=== PATIENT | female | born 1965 | race Hispanic/Latino ===

== ENCOUNTER 2019-06-05 14:07 | Emergency (ER) | payer MEDICARE ==
[~2019-06-05] VITALS: Ht 152.4 cm; Wt 99.8 kg
--- OUTSIDE RECORDS SUMMARY | 2019-06-05 14:09 | XMS REPORT ---
[facility] Unknown Phone Unavailable Care Team Providers Care Rose Grower Name Role Phone JOCELYNE HOPSON VALERIE Unavailable TERELL ALCIDES Unavailable Unavailable Problems This patient has no known problems. Allergies, Adverse Reactions, Alerts This patient has no known allergies or adverse reactions. Medications This patient has no known medications. Encounters Start Date/Time End Date/Time Encounter Type Admission Type Attending [facility] Facility Care Department Encounter ID 2017-06-30 16:11:[address] [facility] [id number] 2017-04-15 09:38:[address] [facility] [id number] 2017-03-13 17:29:[address] [facility] [id number] 2017-08-01 20:33:00 2017-08-01 20:33:[address] [facility] [id number] 2017-07-18 14:38:00 2017-07-18 14:38:00 Outpatient [facility] [id number] 2017-05-02 09:30:00 2017-05-02 09:30:00 Outpatient C [facility] [id number] 2017-03-18 12:28:00 2017-03-18 12:28:[address] [facility] [id number] 2016-12-30 10:06:00 2016-12-30 10:06:[address] [facility] [id number] 2016-12-25 00:49:00 2016-12-25 00:49:00 Emergency E [facility] [id number] Results Test Description Test Time Test Comments Text Results Atomic Results Result Comments XR SPINE LUMBAR 2-3V 2017-08-01 22:02:35 LOCATION: [id number]: 52-year-old female with low back pain.COMMENT: After-hours service at 10:02 p.m.Frontal, lateral, and L5-S1 spot lateral radiographs of the lumbar spinewere obtained.The skeleton is intact and the alignment is adequate. Mild degenerativedisease seen throughout the lumbar spine. The posterior facets atelements are unremarkable. 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 US TRANSVAGINAL 2017-07-18 16:05:38 EXAM: PELVIC ULTRASOUNDINDICATION: Lower abdominal painCOMPARISON: None available TECHNIQUE: Coe scale and color Doppler imaging of the pelvis wasperformed via transabdominal and endovaginal approaches. FINDINGS: The uterus is normal in echotexture measuring 8.3 x 3.2 x 4.3 cm. Nofocal fibroid. The endometrial stripe is homogenous measuring 0.4 cm inthickness. Multiple nabothian cysts are noted. There is a hypoechoiclesion within the lower uterine segment measuring 0.6 x 0.8 cm which isnonspecific and unchanged from 2010.Right ovary measures 1.9 x 1.0 x 1.8 cm and the left ovary measures 1.8x 1.1 x 1.4 cm. Arterial and venous flow is confirmed within bothovaries using spectral waveform analysis. No adnexal mass. No pelvicfree- fluid. IMPRESSION: No acute abnormality of the uterus or ovaries..LOCATION: R 16 US PELVIC COMPLETE 2017-07-18 16:05:38 EXAM: PELVIC ULTRASOUNDINDICATION: Lower abdominal painCOMPARISON: None available TECHNIQUE: Coe scale and color Doppler imaging of the pelvis wasperformed via transabdominal and endovaginal approaches. FINDINGS: The uterus is normal in echotexture measuring 8.3 x 3.2 x 4.3 cm. Nofocal fibroid. The endometrial stripe is homogenous measuring 0.4 cm inthickness. Multiple nabothian cysts are noted. There is a hypoechoiclesion within the lower uterine segment measuring 0.6 x 0.8 cm which isnonspecific and unchanged from 2010.Right ovary measures 1.9 x 1.0 x 1.8 cm and the left ovary measures 1.8x 1.1 x 1.4 cm. Arterial and venous flow is confirmed within bothovaries using spectral waveform analysis. No adnexal mass. No pelvicfree- fluid. IMPRESSION: No acute abnormality of the uterus or ovaries..LOCATION: R 16 CT PELVIS LTD W/O CONTRAST 2017-05-02 10:30:21 CT PELVIS LTD W/O CONTRASTLOCATION: [id number]: R10.32: LEFT LOWER QUADRANT PAIN COMPARISON: Pelvic ultrasound 03/21/2011TECHNIQUE: Axial images of the pelvis were obtained without intravenouscontrast. One or more of the following dose reduction techniques were used:Automated exposure control, adjustment of the mA and/or kV according topatient size, and/or utilization of iterative reconstruction technique.DISCUSSION:Hepatobiliary: The inferior right hepatic tip is grossly unremarkable. Kidneys/ureters: The visualized lower poles of both kidneys and uretersare grossly unremarkable.Pelvic organs/bladder: An approximately 5.3 x 5.9 x 4.2 cm focal areaof peritoneal fat stranding is seen along the left adnexum. The adnexa,uterus, and bladder are otherwise grossly unremarkable.Vessels: Unremarkable.Lymph nodes: No lymphadenopathy.Peritoneum/retroperitoneum: No intraabdominal free air or free fluid.Bowel: No definite abnormal bowel wall thickening or evidence ofobstruction. The appendix does not appear inflamed. A moderate amount ofcolonic stool is present.Bones/soft tissues: There are mild degenerative changes in the bilateralsacroiliac, bilateral hip, and pubic symphysis joints. There are alsomild degenerative changes in the lower lumbar spine. No definite acuteosseous abnormalities are seen.A fat-containing ventral, periumbilical hernia measures approximately6.5 x 3.4 x 6.5 cm. There is nonspecific mild fat stranding within thehernia. Small calcifications within the hernia may be related to remotefat necrosis. A few scattered small subcutaneous calcifications are seenposterior to the pelvis.IMPRESSION:1. Nonspecific 5.9 cm focal area of peritoneal fat stranding along theleft adnexum could be due to focal peritoneal fat infarction or matureovarian cystic teratoma. Follow-up pelvic CT in 3 months is recommended.2. Otherwise, no acute abnormalities in the pelvis.3. Approximately 6.5 cm fat-containing ventral, periumbilical herniawith nonspecific mild fat stranding within the hernia sac. XR RIBS WO CHEST 2V, UNI-LEFT 2017-03-18 14:07:38 XR RIBS WO CHEST 2V, UNI- LEFTLOCATION: R16 INDICATION: Rib Pain - Left COMPARISON: NoneTechnique: 3 views of the left ribs.FINDINGS:No fracture is identified. There is no focal osseous lesion. Thevisualized left lung is unremarkable.IMPRESSION: No left rib fracture. Comprehensive Metabolic Panel 2016-12-25 02:39:00 Sodium (test code=NA) 132 mmol/L 135-145 Potassium (test code=K) 3.7 mmol/L 3.5-5.1 Chloride (test code=CL) 96 mmol/L 98-105 Carbon Dioxide (test code=CO2) 25 mmol/L 22-29 Glucose (test code=GLU) 349 mg/dL 70-115 Blood Urea Nitrogen (test code=BUN) 12 mg/dL 6-20 Creatinine (test code=CREAT) 0.5 mg/dL 0.5-0.9 Calcium (test code=CA) 9.2 mg/dL 8.3-10.5 Prot Total (test code=TP) 6.3 g/dL 6.4-8.3 Albumin (test code=ALB) 3.9 g/dL 3.5-5.2 A/G Ratio (test code=AGRATIO) 1.6 Ratio Globulin (test code=GLOB) 2.4 2.9-3.1 Bili Total (test code=TBIL) 0.2 mg/dL 0.1-0.9 Alk Phos (test code=APHOS) 117 U/L 35-104 AST (test code=AST) 11 U/L 1-32 ALT (test code=ALT) 13 U/L 1-33 BUN/Creatinine Ratio (test code=BCRATIO) 24.0 Anion Gap (test code=AGAP) 11 mmol/L 7-16 Estimated GFR (test code=GFR) >60 mL/min/1.73m2 eGFR (estimated Glomerular Filtration Rate) is an estimated value,calculated from the patient's serum creatinine using the MDRD equation.It is NOT the patient's actual GFR. The eGFR provides a more clinicallyuseful measure of kidney disease than serum creatinine alone.This calculation takes sex and race into account, if the informationis provided. If the race is not provided, and the patient isAfrican-Chilean, multiply by 1.212. If sex is not provided, and thepatient is female, multiply by 0.742. Results for patients <18 years ofage have not been validated by the MDRD study and should be interpretedwith caution.eGFR Result Interpretation:eGFR > or=60 is in the Normal RangeeGFR < 60 may mean kidney diseaseeGFR < 15 may mean kidney failureRanges recommended by the National Kidney Foundat ion,http://nkdep.nih.gov [id number] 02:32:00* Test Item Value Reference Range Comments Amphetamine (test code=AMPH) Negative Negative For diagnostic purposes only, positive results should always be assessedin conjunctionwith the patient's medical history,clinical examination and otherfindings.To fulfill legal requirements, a more specific alternate chemical methodmust be used inorder to obtain a Confirmed analytical result. GC/MS is the preferred confirmatory method. Barbiturates (test code=SIDDHARTH) Negative Negative Benzodiazepine (test code=LAMBERTO) Negative Negative Cocaine (test code=COCA) Negative Negative Methadone (test code=MTHD) Negative Negative Opiates (test code=OPIA) Negative Negative PCP (test code=PCP) Negative Negative Propoxyphene (test code=PROPOX) Negative Negative THC (test code=THC) Negative Negative Alcohol, Urine (test code=ETOHU) <0.01 g/dL 0.00-0.01 Urinalysis [id number] 02:23:00* Test Item Value Reference Range Comments Color (test code=COLOR) Straw Yellow,Straw,Pl yellow Clarity (test code=CLAR) Clear Clear Specific [place] (test code=SPGR) 1.017 1.001-1.035 pH (test code=PH) 5.0 5.0-9.0 Ketone (test code=KET) Negative mg/dL Negative Glucose (test code=GLUCUR) 1000 mg/dL Negative Protein (test code=PROT) Negative mg/dL Negative Bilirubin (test code=BILI) Negative mg/dL Negative Occult Blood (test code=UDOB) Negative Negative Urobilinogen (test code=UROB) 0.2 mg/dL 0.2-1.0 Nitrite (test code=NIT) Negative Negative Leuk Esterase (test code=LEUK) Negative Negative Micros Exam (test code=MEXAM) Indicated Epithelial Cells (test code=EPI) 3-5 /LPF 0-30 WBC, Urine (test code=UWBC) 0-1 /HPF 0-5 RBC, Urine (test code=URBC) None Seen /HPF 0-5 Bacteria (test code=BACT) Few /HPF CBC with [id number] 02:14:00* Test Item Value Reference Range Comments WBC (test code=WBC) 10.7 K/cumm 4.4-10.5 RBC (test code=RBC) 4.27 M/cumm 3.75-5.20 Hemoglobin (test code=HGB) 12.3 gm/dL 12.2-14.8 Hematocrit (test code=HCT) 37.8 % 36.5-44.4 MCV (test code=MCV) 88.4 fL 80-100 MCH (test code=MCH) 28.7 pg 27.0-32.5 MCHC (test code=MCHC) 32.4 g/dL 32.0-37.5 RDW (test code=RDW) 14.1 % 11.5-14.5 Platelet Count (test code=PLTCT) 357 K/cumm 140-440 MPV (test code=MPV) 7.7 fL Diff Method (test code=DIFFM) Auto Neutrophil (test code=NEUT) 59.0 % 36-70 Lymphocyte (test code=LYMPH) 29.4 % 12-44 Monocyte (test code=MONO) 7.3 % 0-11 Eosinophil (test code=EOS) 3.7 % 0-7 Basophil (test code=BASO) 0.6 % 0-2 Neutro Abs (test code=ANEUT) 6.3 K/cumm 1.6-7.4 Lymph Abs (test code=ALYMPH) 3.2 K/cumm 0.5-4.6 [place] Abs (test code=AMONO) 0.8 K/cumm 0.0-1.2 Eos Abs (test code=AEOS) 0.40 K/cumm 0.00-0.74 Baso Abs (test code=ABASO) 0.1 K/cumm 0.00-0.21
[2019-06-05] MEDS: KETOROLAC TROMETHAMINE 60 MG/2 ML VIAL IM ONE (15:00)
[2019-06-05] MEDS ORDERED: KETOROLAC TROMETHAMINE 60 MG/2 ML VIAL ONE (15:09)
== END 2019-06-05 15:24 | disposition home or self-care (01) ==
LOC: FSED 14:07
DX: M25.511 Pain in right shoulder (principal); M79.621 Pain in right upper arm; M54.12 Radiculopathy, cervical region; M15.0 Primary generalized (osteo)arthritis; M47.892 Other spondylosis, cervical region; I10 Essential (primary) hypertension; E11.9 Type 2 diabetes mellitus without complications
CPT/HCPCS: 93005; 99282; J1885

== ENCOUNTER 2021-03-01 16:01 | Emergency (ER) | payer MEDICARE ==
[~2021-03-01] VITALS: Ht 152.4 cm; Wt 90.7 kg
[2021-03-01] MEDS ORDERED: AUGMENTIN 500-1 EACH PO (16:50)
[2021-03-01] MEDS ORDERED: BACTRIM DS TAB1 EACH PO (16:50)
[2021-03-01] MEDS ORDERED: SERTRALINE HCL50 MG PO (17:24)
[2021-03-01] MEDS ORDERED: NEURONTIN300 MG PO (17:24)
[2021-03-01] MEDS ORDERED: METFORMIN HCL500 MG PO (17:24)
[2021-03-01] MEDS ORDERED: IBUPROFEN200 MG PO (17:24)
[2021-03-01] MEDS ORDERED: TRULICITY4.5 MG/0.5 SQ (17:24)
[2021-03-01] MEDS ORDERED: GLIPIZIDE5 MG PO (17:24)
[2021-03-01] MEDS ORDERED: HYDROCODONE/APAP 5MG-325MG TAB ONE (17:26)
[2021-03-01] MEDS ORDERED: HYDROCODONE/APAP 5MG-325MG TAB PO ONE (17:30)
== END 2021-03-01 17:31 | disposition home or self-care (01) ==
LOC: FSED 16:12
DX: L02.415 Cutaneous abscess of right lower limb (principal); I10 Essential (primary) hypertension; E11.9 Type 2 diabetes mellitus without complications
CPT/HCPCS: 10060; 99283